=== PATIENT | male | born 1955 | race Asian ===

== ENCOUNTER 2016-09-27 14:13 | Emergency (ER) | payer OTHER ==
[~2016-09-27] VITALS: Ht 162.6 cm; Wt 61.2 kg
[2016-09-27 14:13] VITALS: BP 140/85
[2016-09-27] MEDS ORDERED: [UNRECOGNIZED DRUG - CODE] PO (14:28)
[2016-09-27] MEDS ORDERED: AUGM875T27 PO (14:54)
[2016-09-27] MEDS ORDERED: ADACEL/BOOSTRIX VACCINE (DIPHTH/PERTUSS/ACELL/TETANUS)0.5ML SYR (90715) IM ONE (15:00)
== END 2016-09-27 15:28 | disposition home or self-care (01) ==
LOC: M ED 14:54
DX: S61.311A Laceration without foreign body of left index finger with damage to nail, initial encounter (principal); W26.0XXA Contact with knife, initial encounter; Y92.000 Kitchen of unspecified non-institutional (private) residence as the place of occurrence of the external cause; Y93.G1 Activity, food preparation and clean up; Y99.8 Other external cause status